=== PATIENT | male | born 1975 | race Caucasian/White ===

== ENCOUNTER 2017-11-15 06:52 | Emergency (ER) | payer OTHER ==
[~2017-11-15] VITALS: Ht 188 cm; Wt 98.0 kg
[~2017-11-15 06:52] MED LIST: ABIL15TA2 PO; HYDR-3533 PO; IBUP800T23 PO; OMEP20TA39 PO; POLY10O LEFT EYE; SERT100 PO
[2017-11-15 06:56] VITALS: BP 126/86; PULSE 76; RESP 16; TEMP 97.8; O2SAT 99
[2017-11-15] MEDS ORDERED: OMEP20TA93 PO (07:14)
[2017-11-15] MEDS ORDERED: ZOLO100T PO (07:14)
[2017-11-15] MEDS ORDERED: ABIL15TA3 PO (07:14)
[2017-11-15] MEDS ORDERED: IBUP1TAB7 PO (07:42)
[2017-11-15] MEDS ORDERED: ROBA500T PO (07:42)
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
[2017-11-15] MEDS ORDERED: ORPHENADRINE INJ 60 MG/2 ML AMP IM ONE (07:45)
[2017-11-15] MEDS ORDERED: KETOROLAC TROMETHAMINE 60 MG/2 ML (IM) VIAL IM ONE (07:45)
== END 2017-11-15 07:56 | disposition home or self-care (01) ==
LOC: NEPD 06:52
DX: S16.1XXA Strain of muscle, fascia and tendon at neck level, initial encounter (principal); M54.89 Other dorsalgia; R51 Headache; Z72.0 Tobacco use; V49.49XA Driver injured in collision with other motor vehicles in traffic accident, initial encounter
CPT/HCPCS: 96372; 99283; J1885; J2360

== ENCOUNTER 2018-07-10 14:42 | Inpatient (IN) ==
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
[2018-07-10 16:24] LABS: Baso % (Auto) 0.4 % (0.0-2.0); Eos # (Auto) 0.1 th/mm3 (0.0-0.4); Eos % (Auto) 1.3 % (0.0-4.0); Hematocrit 49.2 % (39.0-51.0); Hemoglobin 16.6 gm/dL (13.0-17.0); Lymph # (Auto) 3.4 th/mm3 (1.0-4.8); Lymph % (Auto) 34.1 % (9.0-44.0); Mean Corpuscular HGB Conc 33.7 % (32.0-36.0); Mean Corpuscular Hemoglobin 31.7 pg (27.0-34.0); Mean Corpuscular Volume 94.1 fL (80.0-100.0); Mean Platelet Volume 7.8 fL (7.0-11.0); Mono # (Auto) 0.7 th/mm3 (0.0-0.9); Mono % (Auto) 7.2 % (0.0-8.0); Neut # (Auto) 5.7 th/mm3 (1.8-7.7); Platelet Count 240 th/mm3 (150-450); Red Blood Count 5.23 mil/mm3 (4.50-5.90); Red Cell Distribution Width 15.9 % (11.6-17.2); White Blood Count 10.1 th/mm3 (4.0-11.0)
--- NOTE | 2018-07-10 16:41 | XR ---
EXAM DATE: 07/10/2018 4:01 PM EDT AGE/SEX: 43 years / Male INDICATIONS: . Short of breath. CLINICAL DATA: This is the patient's initial encounter. Patient reports that signs and symptoms have been present for 1 day and indicates a pain score of 0/10. MEDICAL/SURGICAL HISTORY: None. None. COMPARISON: No prior exams available for comparison. FINDINGS: AP and lateral views of the chest demonstrate the lungs to be symmetrically aerated without evidence of mass, infiltrate or effusion. The cardiomediastinal contours are unremarkable. Osseous structure s are intact. CONCLUSION: Negative examination. Electronically signed by: Maurisio Patton MD 07/10/2018 4:40 PM EDT
[2018-07-10 16:47] LABS: Anion Gap 7 meq/L (5-15); Blood Urea Nitrogen 12 mg/dL (7-18); Calcium 9.3 mg/dL (8.5-10.1); Carbon Dioxide 25.8 meq/L (21.0-32.0); Chloride 107 meq/L (98-107); Glomerular Filtration Rate 89 mL/min (>89); Glucose,Random 83 mg/dL (74-106); Sodium 140 meq/L (136-145)
[2018-07-10 16:49] LABS: Aspartate Aminotransferase 18 U/L (15-37)
[2018-07-10 17:00] LABS: Alanine Aminotransferase 28 U/L (12-78); Alkaline Phosphatase 84 U/L (45-117); Total Protein 7.8 g/dL (6.4-8.2)
[2018-07-10 20:52] LABS: Amphetamine Screen,Urine Neg (Neg); Barbiturate Screen,Urine Neg (Neg); Cannabinoid Screen,Urine Neg (Neg); Cocaine Screen,Urine Neg (Neg)
[2018-07-10 21:01] LABS: Opiate Screen,Urine Neg (Neg)
[2018-07-10] MEDS ORDERED: Melatonin 5 MG Tablet PO PRN (21:59)
[2018-07-10] MEDS ORDERED: Acetaminophen 325 MG Tablet PO PRN (21:59)
[2018-07-10] MEDS ORDERED: Aluminum/Magnesium/Simethacone Susp 30 ML UDC PO PRN (21:59)
[2018-07-11 08:13] LABS: Chol/HDL Ratio 4.48 Ratio; Free T4 (Free Thyroxine) 1.32 ng/dL (0.76-1.46); HDL Cholesterol 39.7 mg/dL (40.0-60.0)
[2018-07-11] MEDS ORDERED: Sertraline 50 MG Tablet PO ONE (16:27)
[2018-07-11 17:32] LABS: Hemoglobin A1c 5.5 % (4.3-6.0)
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
[2018-07-12] MEDS: Sertraline 100 MG Tablet PO SCH (08:22)
[2018-07-12 17:00] VITALS: RESP 18; O2SAT 100
--- NOTE | 2018-07-12 21:02 | P.PNPSY ---
Subjective Remarks: Patient seen for follow up; chart reviewed. Discussion with nursing staff reported that patient less angry, mostly isolative, slept, out for meals. Patient found lying hospital bed noted to be calm and cooperative. Patient reports having slept well last evening stating his mood is "good" stating feeling less depressed today and that his mood is improving. Patient states that he has spoken with his girlfriend which went well and plans on staying with her once he is feeling more stable. Patient with vague suicide ideations at this time. Patient was encouraged to be out of the room and engage in groups and activities which he appeared reluctant. Review of Systems All other systems reviewed negative except as stated in HPI Mental Status Examination Appearance: Appropriate, Disheveled Orientation: x4 Motor Activity: Normal gait Speech: Unremarkable Language: Adequate Fund of Knowledge: Inadequate Attention and Concentration: Adequate Memory: Unremarkable, Immediate (intact) Mood: Good Affect: Sad Thought Process & Associations: Intact Thought Content: Appropriate Hallucination Type: None Delusion Type: None Suicidal Ideation: Yes (Vague) Suicidal Plan: No Suicidal Intention: No Homicidal Ideation: No Homicidal Plan: No Homicidal Intention: No Insight: Fair Judgment: Impulsive Assessment and Plan - Assessment (1) Adjustment disorder with depressed mood Code(s): F43.21 - Adjustment disorder with depressed mood Status: Acute - Plan Plan: Patient this time reporting improvement in mood, reports having slept well last evening denying any perceptional services or delusions at this time. Patient noted to be isolative her room was encouraged to participate in groups and activities which he was reluctant. Continue current treatment. Continue to monitor mood and behavior. Discharge planning in progress. Justification for Continued Inpatient Stay: At risk of further decompensation at lower level care.
[2018-07-13 05:55] VITALS: BP 117/75; PULSE 81; TEMP 98
[2018-07-13] MEDS: Sertraline 100 MG Tablet PO SCH (09:38)
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
== END 2018-07-13 12:45 | disposition home or self-care (01) ==
LOC: NEPJ 14:42 → NEDA 21:58 → H270 23:22
PROVIDERS: ADMIT Student in an Organized Health Care Education/Training Program; ATTEND Student in an Organized Health Care Education/Training Program